=== PATIENT | male | born 1985 | race Caucasian/White ===

== ENCOUNTER 2023-01-24 10:23 | Emergency (ER) | payer BC, MEDICAID, SELFPAY ==
[2023-01-24 10:46] VITALS: BP 198/117; PULSE 73; RESP 16; TEMP 36.8; O2SAT 99; BMI 32.8
--- NOTE | 2023-01-24 11:27 | ED_ITS ---
HPI - Extremity Injury (Lower) General: Chief Complaint: Extremity Injury, Lower Stated Complaint: ankle injury Time Seen by Provider: 01/24/23 11:26 Source: patient Mode of arrival: ambulatory Limitations: no limitations History of Present Illness: Patient is a 38-year-old male who presents to ED today for evaluation of a right foot injury that he sustained 3 days ago after inverting the foot in a trench that he had dug. He states he has been able to bear minimal weight on the extremity since the injury. He is complaining of pain to the lateral aspect of the right foot. He has no other complaints or injuries at this time. complaint: foot injury Onset (ago): day(s) Injury: Right: foot Type of Injury: inversion Place: home Severity: moderate Relieving factors: immobilization Exacerbating factors: weight bearing, movement and palpation Associated symptoms: Reports no associated symptoms Other symptoms: none Review of Systems Musc: Reports: extremity pain (R foot) and extremity swelling; Denies: neck pain, back pain, joint pain, joint swelling, joint redness or joint warmth Neuro: Reports: difficulty walking; Denies: numbness in extremities, weakness in extremities or sensory changes Physical Exam Const: COMMON NORMALS: no acute distress, patient oriented x3, no limitations, alert and well nourished NUTRITIONAL APPEARANCE: overweight Extremity: COMMON NORMALS: capillary refill normal, no clubbing, cyanosis or e isael and no pedal edema GENERAL: Yes normal exam except as noted RIGHT LOWER EXTREMITY: Yes foot & digits (TTP over base of 5th metatarsal with sw elling) Right foot and digits: Yes ROM (normal) and Yes neurovascular exam (normal) Neuro: COMMON NORMALS: patient oriented x3, moves all extremities, no focal motor deficits and no sensory deficits noted SENSORIUM/ORIENTATION: Yes alert Skin: TRAUMA: no lacerations or abrasions Course Vital Signs: Vital signs: Vital Signs Temperature 98.2 F 01/24/23 10:46 Pulse Rate 73 01/24/23 10:46 Respiratory Rate 16 01/24/23 10:46 Blood Pressure 198/117 01/24/23 10:46 Pulse Oximetry 99 01/24/23 10:46 Oxygen Delivery Me thod Room Air 01/24/23 10:46 MDM - Extremity Injury (Lower) Medical Decision Making Personal interpretations of x-rays shows a cortical irregularity at the base of his fifth metatarsal only seen on the oblique view. Other views appear normal. He is point tender here on exam thus I will place him in a [employer] surgical shoe give him crutches for no weightbearing and will have him follow-up with podiatry. Discharge Plan Discharge Patient Disposition: Home Clinical Impression: Closed fracture of fifth metatarsal bone Qualifiers: Encounter type: initial encounter Fracture alignment: nondisplaced Laterality: right Qualified Code(s): S92.354A - Nondisplaced fracture of fifth metatarsal bone, right foot, initial encounter for closed fracture Condition: Stable Prescriptions: No Action No Known Home Medications Discharge Orders: Discharge ED (Routine); Ordered 01/24/23 Ordered By: Alisha Buckley Patient Instructions: Fractures - Metatarsal, RICE Therapy Stand Alone Forms: Work/School Release Coding Level of Care Code ED Concrete Spreader for Keyshawn Soto
--- NOTE | 2023-01-24 11:31 | XR_ITS ---
WS: [id number] XR foot RT min 3V* [id number] REASON FOR EXAM: trauma/injury FINDINGS: No fracture identified. Mild narrowing of the joint spaces with subchondral sclerosis in the DIP joints of the second through the fifth toes. Similar arthropathy in the tarsal metatarsal joint of the great toe. Multiple bony exostoses from the distal phalanx of the great toe. The joint spaces of the midfoot and hindfoot are intact and well preserved. XR/XR foot RT min 3V* [id number] IMPRESSION: No acute abnormality of the right forefoot.
--- NOTE | 2023-01-24 13:20 | DCPLANNER ---
Addendum entered by Cynthia Maynard 02/02/23 13:42: Patient had a follow up appointment scheduled with podiatry - patient did attend appointment Addendum entered by Cynthia Maynard 01/26/23 08:36: branch account manager received the following message from the podiatry clinic regarding follow up appointment: Pt does not have a vm/mailed letter for pt to call back and schedule with San[facility] Original Note: branch account manager had message to schedule a follow up appointment for patient with podiatry. branch account manager sent patients information to the front office staff at podiatry. Patients information will be printed and reviewed. Clinic will call patient with appointment information.
--- NOTE | 2023-01-24 15:27 | DCPLANNER ---
insurance risk manager called patient due to no primary care physician - no answer at this time.
== END 2023-01-24 12:29 | disposition home or self-care (01) ==
PROVIDERS: Emergency Provider Physician Assistant
DX: S92.354A Nondisplaced fracture of fifth metatarsal bone, right foot, initial encounter for closed fracture (principal); W18.42XA Slipping, tripping and stumbling without falling due to stepping into hole or opening, initial encounter
CPT/HCPCS: 73630; 99283; E0114